=== PATIENT | male | born 1980 | race Caucasian/White ===

== ENCOUNTER 2016-11-25 12:13 | Emergency (ER) | payer OTHER ==
[2016-11-25 12:42] VITALS: BP 128/78; PULSE 75; RESP 18; TEMP 98.1
--- NOTE | 2016-11-25 12:54 | ED ---
Upper Extremity HPI - General Chief Complaint: Extremity Injury, Upper Stated Complaint: Left Arm Injury Time Seen by Provider: 11/25/16 12:43 Source: patient, RN notes reviewed, old records reviewed Mode of arrival: ambulatory Limitations: no limitations - History of Present Illness Initial Comments: Patient is a 36-year-old male chief complaint of left shoulder pain for approximately 3 days. 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 Patient reports that when he closed the door to door slammed on the shoulder was pushed forward. Patient states he feels like he hyperextended his shoulder. He states he does have full range of motion. Denies any numbness or tingling down the hand. Denies any chest pain shortness of breath nausea or vomiting or dizziness. Patient states that the pain is worse with different movements. He has never had any previous injuries to shoulder.Patient denies any recent fever, chills, shortness of breath, chest pain, back pain, abdominal pain, nausea vomiting, numbness or tingling, dysuria or hematuria, constipation or diarrhea, headaches or visual changes, or any other current symptoms - Related Data Previous Rx's Medication Instructions Recorded Ibuprofen [Motrin] 600 mg PO Q6HR PRN #20 tab 10/01/15 traMADol HCL [Ultram] 50 mg PO Q6HR PRN #12 tab 11/25/16 Allergies Allergy/AdvReac Type Severity Reaction Status Date / Time No Known Allergies Allergy Verified 11/25/16 12:40 Review of Systems ROS Statement: Those systems with pertinent positive or pertinent negative responses have been documented in the HPI. ROS Other: All systems not noted in ROS Statement are negative. Past Medical History Past Medical History: No Reported History History of Any Multi-Drug Resistant Organisms: None Reported Additional Past Surgical History / Comment(s): Lipoma removal Past Psychological History: No Psychological Hx Reported Smoking Status: Former smoker Past Alcohol Use History: Occasional Past Drug Use History: None Reported General Exam - General Exam Comments Initial Comments: Pleasant 36-year-old male. Patient does not appear to be in any acute distress. Limitations: no limitations General appearance: alert, in no apparent distress Head exam: Present: atraumatic, normocephalic, normal inspection Eye exam: Present: normal appearance, PERRL, EOMI. Absent: scleral icterus, conjunctival injection, periorbital swelling ENT exam: Present: normal exam Neck exam: Present: normal inspection. Absent: tenderness, meningismus, lymphadenopathy Respiratory exam: Present: normal lung sounds bilaterally. Absent: respiratory distress, wheezes, rales, rhonchi, stridor Cardiovascular Exam: Present: regular rate, normal rhythm, normal heart sounds. Absent: systolic murmur, diastolic murmur, rubs, gallop, clicks GI/Abdominal exam: Present: soft, normal bowel sounds. Absent: distended, tenderness, guarding, rebound, rigid Extremities exam: Present: normal inspection, full ROM, normal capillary refill. Absent: tenderness, pedal edema, joint swelling, calf tenderness Left Shoulder Exam: Present: normal inspection, full ROM, tenderness (Tenderness over the glenohumeral joint.) Upper Arm exam: Present: normal inspection, full ROM Elbow exam: Present: normal inspection, full ROM Forearm Wrist exam: Present: normal inspection, full ROM Hand Wrist exam: Present: normal inspection, full ROM Neuro motor exam: Present: wrist extension intact, thumb opposition intact, thumb IP flexion intact, thumb adduction intact, fingers 2-5 abduction intact Vascular: Present: normal capillary refill Back exam: Present: normal inspection Neurological exam: Present: alert, oriented X3, CN II-XII intact Psychiatric exam: Present: normal affect, normal mood Skin exam: Present: warm, dry, intact, normal color. Absent: rash Course Vital Signs 11/25/16 12:40 Temperature 98.1 F Pulse Rate 75 Respiratory 18 Rate Blood Pressure 128/78 O2 Sat by Pulse 98 Oximetry Medical Decision Making - Medical Decision Making atient is a 36-year-old male chief complaint of left shoulder pain for approximately 3 days. 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 Patient reports that when he closed the door to door slammed on the shoulder was pushed forward. Patient states he feels like he hyperextended his shoulder. He states he does have full range of motion. Denies any numbness or tingling down the hand. Denies any chest pain shortness of breath nausea or vomiting or dizziness. Patient states that the pain is worse with different movements. Patient does have full range of motion of his left shoulder. He does have full strength. X-ray of the left shoulder was obtained. States the pain is worse with certain movements specifically reaching overhead. Discussed that we'll put the patient in a sling and continue to take Tylenol and Motrin for pain. Patient will be discharged with a few tramadol for severe pain. Discussed close follow-up with orthopedic if symptoms continue persist. Patient agrees to treatment plan will comply. Return parameters were discussed. - Radiology Data Radiology results: report reviewed Left shoulder x-rays interpreted for any acute process. No evidence of fracture dislocation. Disposition Clinical Impression: Shoulder sprain Disposition: HOME SELF-CARE Condition: Good Instructions: Shoulder Sprain (ED) Additional Instructions: Rest, continue to apply ice over the shoulder. Take Motrin for pain. Patient can take an Ultram for severe pain at night. Patient should follow-up with orthopedic physician if symptoms continue to persist. Prescriptions: traMADol HCL [Ultram] 50 mg PO Q6HR PRN #12 tab PRN Reason: Pain Referrals: None,Stated [Primary Care Provider] - 1-2 days Natan Vann DO [Doctor of Osteopathic Medicine] - 1-2 days Time of Disposition: 13:02
--- NOTE | 2016-11-25 13:07 | XR ---
EXAMINATION TYPE: XR shoulder complete LT DATE OF EXAM: 11/25/2016 1:00 PM CLINICAL HISTORY: Left shoulder pain since pulling injury 5 days ago. TECHNIQUE: Three views of the left shoulder are obtained. COMPARISON: None. FINDINGS: There is no acute fracture/dislocation evident in the left shoulder. The acromioclavicula r and glenohumeral joint spaces appear within normal limits. The visualized ribs are intact and unre markable. IMPRESSION: There is no acute fracture or dislocation in the left shoulder.
== END 2016-11-25 13:12 | disposition home or self-care (01) ==
LOC: EC 12:13
DX: S43.402A Unspecified sprain of left shoulder joint, initial encounter (principal); Z87.891 Personal history of nicotine dependence; W23.0XXA Caught, crushed, jammed, or pinched between moving objects, initial encounter; Y93.89 Activity, other specified
CPT/HCPCS: 99284

== ENCOUNTER 2017-03-10 20:54 | Emergency (ER) | payer OTHER ==
[2017-03-10 22:43] VITALS: RESP 16
--- NOTE | 2017-03-10 22:49 | ED ---
General Adult HPI - General Chief complaint: Abdominal Pain Stated complaint: abd/rib pain Time Seen by Provider: 03/10/17 22:31 Source: patient Mode of arrival: ambulatory Limitations: no limitations - History of Present Illness Initial comments: Patient is a 37-year-old male with no significant past medical history who presents to the ED for evaluation of right upper quadrant pain that occurs when he bends over intermittently for the past one year. Patient states that for approximately one year he has noticed that at times if he is in a standing position and bends over to tie his shoes he experiences a sharp pain in his right upper quadrant. The patient describes the pain as feeling like a muscle tightness. He reports that if he stands and stretches with his hands over his head the pain resolves. He hasn't identified any other exacerbating or relieving factors to this pain. The pain does not occur every time he bends over. Pain is not associated with any nausea, vomiting, change in bowel or bladder habits, chest pain or shortness of breath. He does state when he has the pain is more painful when he takes deep breaths, however he does however feel short of breath. Patient does report he is a former smoker, quit smoking 13 months ago. Patient states he is concerned that because he was a smoker he is a high risk of having lung cancer and wants to be evaluated. Patient does not have a primary care physician, he states the formally followed with primary care physician in [place] however he moved appear to years ago and hasn 't established care. 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 He does report he still drinks 2-3 times per week drinking usually only about 3 beers at a time though he does admit on occasion he has up to 9 beers. He denies being a daily drinker, he denies any history of withdrawal. - Related Data Home Medications Medication Instructions Recorded Confirmed Amoxicillin 500 mg PO Q8H 03/10/17 03/10/17 Allergies Allergy/AdvReac Type Severity Reaction Status Date / Time No Known Allergies Allergy Verified 03/10/17 21:33 Review of Systems ROS Statement: Those systems with pertinent positive or pertinent negative responses have been documented in the HPI. ROS Other: All systems not noted in ROS Statement are negative. Constitutional: Denies: fever, chills ENT: Denies: throat pain Respiratory: Denies: cough, dyspnea, wheezes, hemoptysis Cardiovascular: Denies: chest pain, palpitations, dyspnea on exertion, orthopnea , edema, syncope Endocrine: Denies: fatigue Gastrointestinal: Reports: abdominal pain. Denies: nausea, vomiting, diarrhea, constipation, hematemesis, melena, hematochezia Genitourinary: Denies: urgency, dysuria, frequency, hematuria Musculoskeletal: Denies: back pain Skin: Denies: rash, lesions, change in color Neurological: Denies: headache, weakness Psychiatric: Denies: anxiety Hematological/Lymphatic: Denies: easy bleeding, easy bruising Past Medical History Past Medical History: No Reported History History of Any Multi-Drug Resistant Organisms: None Reported Past Surgical History: No Surgical Hx Reported Additional Past Surgical History / Comment(s): Lipoma removal Past Psychological History: No Psychological Hx Reported Smoking Status: Former smoker Past Alcohol Use History: Occasional Past Drug Use History: None Reported General Exam Limitations: no limitations General appearance: alert, in no apparent distress Head exam: Present: atraumatic, normocephalic, normal inspection Eye exam: Present: normal appearance, PERRL, EOMI. Absent: scleral icterus, conjunctival injection, periorbital swelling ENT exam: Present: normal exam, mucous membranes moist Neck exam: Present: normal inspection. Absent: tenderness, meningismus, lymphadenopathy Respiratory exam: Present: normal lung sounds bilaterally. Absent: respiratory distress, wheezes, rales, rhonchi, stridor, chest wall tenderness Cardiovascular Exam: Present: regular rate, normal rhythm, normal heart sounds. Absent: systolic murmur, diastolic murmur, rubs, gallop, clicks GI/Abdominal exam: Present: soft, normal bowel sounds. Absent: distended, tenderness, guarding, rebound, rigid, organomegaly, mass, pulsatile mass, hernia Extremities exam: Present: normal inspection, full ROM, normal capillary refill. Absent: tenderness, pedal edema, joint swelling, calf tenderness Back exam: Present: normal inspection, other (Very small well-healed surgical scar in the lumbar region consistent with history of lipoma removal) Neurological exam: Present: alert, oriented X3, CN II-XII intact Psychiatric exam: Present: normal affect, normal mood Skin exam: Present: warm, dry, intact, normal color. Absent: rash Course Vital Signs 03/10/17 03/10/17 03/11/17 21:29 22:39 00:11 Temperature 98.8 F 97.5 F L Pulse Rate 65 68 56 L Respiratory 18 16 16 Rate Blood Pressure 133/76 133/73 127/74 O2 Sat by Pulse 98 99 97 Oximetry Medical Decision Making - Medical Decision Making Patient was seen and evaluated, history was obtained from the patient Triage vital signs were reviewed, unremarkable History is vague with a right upper quadrant discomfort that occurs when bending over intermittently for one year time I advised the patient that he doesn't appear to have an emergency today, and that we likely will not have a definitive diagnosis for his intermittent pain. I advised the patient that he should keep a journal of his pain to document if it is related to any specific activities, eating that he can discuss this with her primary care physician when he follows up. Order acute abdominal series to evaluate Abdominal series no acute findings, results were discussed with patient expresses relief that there is no lung mass identified. I advised the patient that he needs to follow up with primary care physician for further evaluation. Patient expressed understanding and agreement with plan for discharge home and close follow-up with her primary care physician. All questions pertaining to care were answered to the best my ability the patient was discharged home in stable condition Disposition Clinical Impression: Abdominal pain Disposition: HOME SELF-CARE Condition: Good Instructions: Abdominal Pain (ED) Referrals: None,Stated [Primary Care Provider] - 1-2 days
--- NOTE | 2017-03-10 23:18 | XR ---
EXAM: XR Abdomen Complete With XR Chest CLINICAL HISTORY: Reason: Pain. Abdominal pain. TECHNIQUE: Frontal view of the chest, frontal view of the abdomen/pelvis and upright view of the abdomen. COMPARISON: No relevant prior studies available. FINDINGS: Lungs: Lungs are clear without focal infiltrates or consolidations. Pleural space: No evidence of pleural disease or effusion. Heart: Chest: Heart size and mediastinal structures are within normal limits. Mediastinum: Unremarkable. Intraperitoneal space: Bowel gas pattern is unremarkable. No evidence of bowel obstruction or pneumoperitoneum. Gastrointestinal tract: Unremarkable. No dilation. Organs: No radiopaque renal calculi. Bones/joints: Unremarkable. Other findings: No abnormal calcifications in abdomen or pelvis. IMPRESSION: No radiographic evidence of acute abdominal disease or bowel obstruction.
[2017-03-11 00:12] VITALS: BP 127/74; PULSE 56; TEMP 97.5
== END 2017-03-11 00:12 | disposition home or self-care (01) ==
LOC: EC 20:54
DX: R10.11 Right upper quadrant pain (principal); R06.02 Shortness of breath; Z87.891 Personal history of nicotine dependence
CPT/HCPCS: 74022; 99284

== ENCOUNTER 2018-01-05 16:22 | Emergency (ER) | payer OTHER ==
[2018-01-05 17:05] VITALS: BP 111/63; PULSE 69; RESP 16; TEMP 98.1
--- NOTE | 2018-01-05 17:33 | XR ---
EXAMINATION TYPE: XR hand complete LT DATE OF EXAM: 01/05/2018 COMPARISON: NONE HISTORY: Metacarpal pain TECHNIQUE: 3 views FINDINGS: I see no fracture nor dislocation. Metacarpals are intact. Joint spaces are normal. IMPRESSION: Negative left hand exam.
--- NOTE | 2018-01-05 17:46 | ED ---
Upper Extremity HPI - General Chief Complaint: Extremity Injury, Upper Stated Complaint: lt hand/wrist injury Time Seen by Provider: 01/05/18 17:24 Source: patient, RN notes reviewed Mode of arrival: ambulatory Limitations: no limitations - History of Present Illness Initial Comments: 37-year-old male presents emergency department for chief complaint of left hand pain. Patient states he was helping move some carpet today states that he felt some pulling on his hand he has some pain after making a fist. Patient denies any swelling no ecchymosis he is [id number]. He said no prior left hand injuries. Patient has not taken any medications prior arrival. - Related Data Home Medications Medication Instructions Recorded Confirmed Amoxicillin 500 mg PO Q8H 03/10/17 03/10/17 Allergies Allergy/AdvReac Type Severity Reaction Status Date / Time No Known Allergies Allergy Verified 01/05/18 17:05 Review of Systems ROS Statement: Those systems with pertinent positive or pertinent negative responses have been documented in the HPI. ROS Other: All systems not noted in ROS Statement are negative. Past Medical History Past Medical History: No Reported History History of Any Multi-Drug Resistant Organisms: None Reported Past Surgical History: No Surgical Hx Reported Additional Past Surgical History / Comment(s): Lipoma removal Past Psychological History: No Psychological Hx Reported Smoking Status: Former smoker Past Alcohol Use History: Occasional Past Drug Use History: None Reported General Exam Limitations: no limitations General appearance: alert, in no apparent distress Respiratory exam: Present: normal lung sounds bilaterally. Absent: respiratory distress, wheezes, rales, rhonchi, stridor Cardiovascular Exam: Present: regular rate, normal rhythm, normal heart sounds. Absent: systolic murmur, diastolic murmur, rubs, gallop, clicks Extremities exam: Present: other (Left hand there is mild pain with extension and flexion of the fourth and fifth digit though it's very minimal patient has equal strength there is no focal weakness Refill less than 2 seconds of all digits there is no tenderness over the carpal region or the metacarpals.) Course Vital Signs 01/05/18 17:03 Temperature 98.1 F Pulse Rate 69 Respiratory 16 Rate Blood Pressure 111/63 O2 Sat by Pulse 99 Oximetry Medical Decision Making - Medical Decision Making 37-year-old male presented from for left hand injury. I do feel the patient has left hand sprain there is no injuries noted on x-ray no acute fracture. Patient has equal strength there is no concern for complete rupture of tendon at this time. Patient will follow-up with orthopedics if no improvement. Conservative treatment will be started icing, Tylenol, Motrin and close follow- up. Disposition Clinical Impression: Sprain of left hand Disposition: HOME SELF-CARE Condition: Stable Instructions: Hand Sprain (ED) Additional Instructions: Please return to the Emergency Department if symptoms worsen or any other concerns. Is patient prescribed a controlled substance at d/c from ED?: No Referrals: Jama Elam MD [Primary Care Provider] - 1-2 days Time of Disposition: 17:46
== END 2018-01-05 17:56 | disposition home or self-care (01) ==
LOC: EC 16:22
DX: S63.92XA Sprain of unspecified part of left wrist and hand, initial encounter (principal); Z87.891 Personal history of nicotine dependence; X50.0XXA Overexertion from strenuous movement or load, initial encounter
CPT/HCPCS: 99283

== ENCOUNTER 2019-04-13 09:50 | Emergency (ER) | payer BC, OTHER ==
[2019-04-13 09:57] VITALS: TEMP 97.9
[2019-04-13] MEDS ORDERED: KETOROLAC 30 MG/ML 1 ML VIAL IM STA (10:58)
--- NOTE | 2019-04-13 11:04 | ED ---
General Adult HPI - General Chief complaint: Back Pain/Injury Stated complaint: back pain Time Seen by Provider: 04/13/19 10:06 Source: patient, RN notes reviewed Mode of arrival: ambulatory Limitations: no limitations - History of Present Illness Initial comments: 39-year-old male without any significant past medical history presents to the emergency department for back pain. Patient bent down to put his lunch box in his backpack earlier this morning and felt a sudden pain in his back. States it is on the bilateral sides of his lower spine. Patient states it is painful to walk and with movement but denies any difficulty walking. Denies any radiating pain down the legs. Denies any weakness numbness or tingling in the legs. Denies any bladder or bowel changes or saddle anesthesia. No fevers or chills, history of IV drug abuse, or recent bacterial infections.Patient has no other complaints at this time including shortness of breath, chest pain, abdominal pain, nausea or vomiting, headache, or visual changes. - Related Data Home Medications Medication Instructions Recorded Confirmed Glucosam/Martin-Msm1/C/Giovanni/Bosw 2 tab PO DAILY 04/13/19 04/13/19 [Glucosamine-Chondroitin Tablet] Ibuprofen [Motrin] 800 mg PO Q6H PRN 04/13/19 04/13/19 Vitamin B Complex 1 cap PO DAILY 04/13/19 04/13/19 valACYclovir [Valtrex] 500 mg PO DAILY 04/13/19 04/13/19 Previous Rx's Medication Instructions Recorded Lidocaine 5% Patch [Lidoderm 5% 1 patch TOPICAL DAILY PRN 5 Days 04/13/19 Patch] #5 patch Allergies Allergy/AdvReac Type Severity Reaction Status Date / Time No Known Allergies Allergy Verified 04/13/19 10:05 Review of Systems ROS Statement: Those systems with pertinent positive or pertinent negative responses have been documented in the HPI. ROS Other: All systems not noted in ROS Statement are negative. Past Medical History Past Medical History: No Reported History Additional Past Medical History / Comment(s): herpes History of Any Multi-Drug Resistant Organisms: None Reported Past Surgical History: No Surgical Hx Reported Additional Past Surgical History / Comment(s): Lipoma removal Past Psychological History: No Psychological Hx Reported Smoking Status: Former smoker Past Alcohol Use History: Occasional Past Drug Use History: Marijuana General Exam Limitations: no limitations General appearance: alert, in no apparent distress (Resting comfortably, reading a book.) Head exam: Present: atraumatic, normocephalic, normal inspection Eye exam: Present: normal appearance, PERRL, EOMI. Absent: scleral icterus, conjunctival injection, periorbital swelling ENT exam: Present: normal exam, mucous membranes moist Neck exam: Present: normal inspection, full ROM. Absent: tenderness, meningismus, lymphadenopathy Respiratory exam: Present: normal lung sounds bilaterally. Absent: respiratory distress, wheezes, rales, rhonchi, stridor Cardiovascular Exam: Present: regular rate, normal rhythm, normal heart sounds. Absent: systolic murmur, diastolic murmur, rubs, gallop, clicks Extremities exam: Present: full ROM (Patient is able to move lower extremities without difficulty, full range of motion.), normal capillary refill (Capillary refill less than 2 seconds, DP pulse 2+ and equal in lower extremities bilaterally), other (Sensation intact throughout lower extremities bilaterally.). Absent: tenderness, pedal edema, joint swelling, calf tenderness (Tenderness erythema or edema present and lower extremities.) Back exam: Present: paraspinal tenderness (Minimal bilateral lumbar paraspinal tenderness). Absent: full ROM (Patient has 45 of flexion of the lumbar spine, pain with extension.), CVA tenderness (R), CVA tenderness (L), vertebral tenderness (No lumbar vertebral tenderness) Neurological exam: Present: alert, normal gait (Patient ambulatory.) Course Vital Signs 04/13/19 09:54 Temperature 97.9 F Pulse Rate 73 Respiratory 18 Rate Blood Pressure 128/86 O2 Sat by Pulse 100 Oximetry Medical Decision Making - Medical Decision Making 39-year-old male presents to the emergency department for low back pain. Patient bent down today to put a lunch box and his backpack and felt a sudden pain in his back. This is paraspinal pain. There are no red flag symptoms. Vitals are stable. The patient is afebrile. Patient is ambulatory and neurovascular status is intact in lower extremities. Patient presents specifically for MRI. I discussed with the patient that we are not able to do MRI but I will be able to give him an orthopedic referral for possible MRI. He is agreeable to this. Patient will also be given a work note and Toradol for pain. He'll continue Motrin and Tylenol at home. He will be given a Rx for lidocaine patches. Discussed gentle stretching and following up with orthopedics. Discussed returning here if he has any worsening symptoms. Disposition Clinical Impression: Mechanical back pain, Strain of lumbar region Disposition: HOME SELF-CARE Condition: Good Instructions (If sedation given, give patient instructions): Acute Low Back Pain (ED), Lower Back Exercises (ED) Additional Instructions: Please take Motrin and Tylenol for pain. Please use lidocaine patches as needed. This was prescribed to Francie on . do gentle stretching of the low back. Follow-up with orthopedics in one to 2 days. If you have any worsening symptoms such as weakness or numbness in the lower extremities, numbness in the groin or buttock, bladder or bowel changes, or fevers or any other concerning symptoms return to the emergency department. Prescriptions: Lidocaine 5% Patch [Lidoderm 5% Patch] 1 patch TOPICAL DAILY PRN 5 Days #5 patch PRN Reason: Pain Is patient prescribed a controlled substance at d/c from ED?: No Referrals: Jama Elam MD [Primary Care Provider] - 1-2 days Time of Disposition: 11:02
[2019-04-13 11:14] VITALS: BP 124/82; PULSE 70; RESP 16
== END 2019-04-13 11:10 | disposition home or self-care (01) ==
LOC: EC 09:50
DX: S39.012A Strain of muscle, fascia and tendon of lower back, initial encounter (principal); Z87.891 Personal history of nicotine dependence; Z86.19 Personal history of other infectious and parasitic diseases; Z98.890 Other specified postprocedural states; Z79.899 Other long term (current) drug therapy; X50.9XXA Other and unspecified overexertion or strenuous movements or postures, initial encounter; Y93.89 Activity, other specified
CPT/HCPCS: 99283; 96372; J1885

== ENCOUNTER → 2019-04-25 | Outpatient (CLI) | payer BC, OTHER ==
--- NOTE | 2019-04-26 07:01 | CT ---
EXAMINATION TYPE: CT lumbar spine wo con DATE OF EXAM: 04/25/2019 COMPARISON: None HISTORY: Muscle spasms after lifting injury CT DLP: 937 mGycm CONTRAST: None TECHNIQUE: CT of the lumbar spine is performed on a spiral scan at 3 mm thick sections. Reconstructed images are performed in the coronal and sagittal planes. FINDINGS: T12-L1: No focal disc herniation or significant disc bulge is evident. No spinal canal stenosis or neural foraminal stenosis is present. L1-L2: No focal disc herniation or significant disc bulge is evident. No spinal canal stenosis or n eural foraminal stenosis is present L2-L3: No focal disc herniation or significant disc bulge is evident. No spinal canal stenosis or n eural foraminal stenosis is present L3-L4: Broad-based moderate disc bulge has moderate anterior thecal sac flattening. No AP spinal audra l stenosis is present. Neural foramen are patent. L4-L5: Minimal disc bulge is present with anterior thecal sac flattening. No AP spinal canal stenosis or neural foraminal stenosis present. L5-S1: There is narrowing of the disc height. Residual disc bulge has contact with the exiting S1 ner ve roots. No spinal canal stenosis is present. Neural foramen are patent. Vertebral alignment appears normal. Vertebral body heights are preserved. Disc heights are preserved. IMPRESSION: 1. Mild disc bulging L3-4 L4-5 with mild to moderate anterior thecal sac flattening. 2. No abnormal paraspinal soft tissue injury radiographically evident.
== END | disposition home or self-care (01) ==
LOC: RADCTMAIN 16:55
PROVIDERS: ATTEND Family Medicine
DX: M51.26 Other intervertebral disc displacement, lumbar region (principal)
CPT/HCPCS: 72131

== ENCOUNTER → 2020-03-05 | Outpatient (CLI) | payer BC, OTHER ==
--- NOTE | 2020-03-05 15:17 | US ---
EXAMINATION TYPE: US scrotum with doppler. Grayscale and color Doppler Duplex imaging performed of bebo grissom scrotum. DATE OF EXAM: 03/05/2020 COMPARISON: NONE CLINICAL HISTORY: N50.9 Testicle mass. Pt states bilat testicle pain, palpable lump left groin EXAM MEASUREMENTS: TESTICLES: Right Testicle: 5.0 x 2.2 x 3.8 cm Left Testicle: 4.8 x 1.9 x 3.3 cm EPIDIDYMIS HEAD: Right Epididymis: 1.1 cm Left Epididymis: 0.9 cm Doppler performed to assess for testicular vascularity; good bilateral color flow and waveforms are s een. Presence of hydroceles: No Presence of varicoceles: Lateral to right testicle Right testicular calcification= 0.2 cm in size Left epi head cyst= 0.5 x 0.4 cm Within left groin in area of pt's palpable there is a hypoechoic area superficial just under the sk in line= 2.4 x 0.4 x 1.5 cm Mall cysts in the left epididymis. Dermal-based lesion in the left groin in the area of palpable lump . Lesion favored benign. Satisfactory symmetric blood flow to both testicles noted. IMPRESSION: Satisfactory symmetric blood flow to both testicles documented. No suspicious focal intra testicular mass.
== END | disposition home or self-care (01) ==
LOC: RADUSWWP 14:43
PROVIDERS: ATTEND Family Medicine
DX: N50.9 Disorder of male genital organs, unspecified (principal)
CPT/HCPCS: 76870; 93975

== ENCOUNTER → 2021-03-01 | Day surgery (SDC) | payer BC, OTHER ==
[2021-02-26 09:07] VITALS: BMI 27.0
[~2021-03-01] MED LIST: LACTATED RINGERS 1,000 ML IV ONE; PROPOFOL 10 MG/ML 20 ML VIAL IV ONE
[2021-03-01 09:53] VITALS: RESP 16; TEMP 98.5
[2021-03-01 10:15] LABS: Glucose,Whole Blood 102 mg/dL (75-99)
--- NOTE | 2021-03-01 11:31 | P.GSHP ---
History of Present Illness H&P Date: 03/01/21 Chief Complaint: Family history of colon cancer This a 40-year-old male who presents today for colonoscopy. Patient has a strong family history of colon cancer with his mother having colon cancer. Past Medical History Past Medical History: No Reported History Additional Past Medical History / Comment(s): gentital herpes., hemorrhoids, states having perineal pain., occasional hypoglycemia. History of Any Multi-Drug Resistant Organisms: None Reported Past Surgical History: No Surgical Hx Reported Additional Past Surgical History / Comment(s): Lipoma removal L-3, AND lipoma at groin. Past Anesthesia/Blood Transfusion Reactions: No Reported Reaction Past Psychological History: No Psychological Hx Reported Additional Psychological History / Comment(s): states he is going for counseling, thinks he may be bipolar but has not seen yet Smoking Status: Former smoker Past Alcohol Use History: Occasional Additional Past Alcohol Use History / Comment(s): quit smoking 2014 and quit vaping recently, quit cigars 1 month ago. Past Drug Use History: Marijuana Additional Drug Use History / Comment(s): quit marijuana recently - Past Family History Mother Family Medical History: Cancer Additional Family Medical History / Comment(s): colon cancer Father Additional Family Medical History / Comment(s): patients great grandmother and great great grandmother had colon cancer Medications and Allergies Home Medications Medication Instructions Recorded Confirmed Type valACYclovir [Valtrex] 500 mg PO DAILY 04/13/19 03/01/21 History Multivitamin & Supplement Pack 1 dose PO DAILY 02/26/21 03/01/21 History Naproxen Sodium [Aleve] 440 mg PO DIRECTED PRN 02/26/21 03/01/21 History Allergies Allergy/AdvReac Type Severity Reaction Status Date / Time No Known Allergies Allergy Verified 03/01/21 09:55 Surgical - Exam Vital Signs Temp Pulse Resp BP Pulse Ox 98.5 F 77 16 131/76 97 03/01/21 09:52 03/01/21 09:52 03/01/21 09:52 03/01/21 09:52 03/01/21 09:52 - General well developed, well nourished, no distress - Eyes PERRL - ENT normal pinna - Neck no masses - Respiratory normal expansion - Cardiovascular Rhythm: regular - Abdomen Abdomen: soft, non tender Results - Labs Abnormal Lab Results - Last 24 Hours (Table) 03/01/21 Range/Units 10:10 POC Glucose (mg/dL) 102 H (75-99) mg/dL Assessment and Plan Assessment: Family history of colon cancer. We'll perform colonoscopy.
--- NOTE | 2021-03-01 11:46 | P.OP ---
Date of Procedure: 03/01/21 Preoperative Diagnosis: Family history colon cancer Postoperative Diagnosis: No evidence of colorectal polyps in rectum sigmoid colon and left colon. Incomplete colonoscopy, barium enema pending Procedure(s) Performed: Colonoscopy Anesthesia: MAC Surgeon: Alex Ribeiro Pathology: none sent Condition: stable Disposition: PACU Description of Procedure: Patient's placed on the endoscopy table in the lateral position. He received IV sedation. Digital rectal exam was performed which revealed no abnormalities. Possible colonoscope was then placed patient anus and passed throughout colon. The scope couldn't be advanced. The colon. This was due to significant tortuosity. Scope was withdrawn. A pediatric colonoscope was then placed patient anus passed throughout the colon. However once again the colonoscope could not be advanced beyond the left colon. This was withdrawn. There was no evidence of any polyps or tumors. Scope was brought back the rectum this appeared normal. Scope withdrawn for patient.
[2021-03-01 12:00] VITALS: BP 121/73; PULSE 60
--- NOTE | 2021-03-03 23:52 | FL ---
EXAMINATION TYPE: FL barium enema w air contrast DATE OF EXAM: 03/01/2021 CLINICAL HISTORY: 40-year-old male incomplete colonoscopy, family history of colon cancer. TECHNIQUE: A double contrast barium enema study is performed. COMPARISON: None. Total fluoroscopy time: 4 minutes 40 seconds. Total images: 76. FINDINGS: Baggage Checker view of the abdomen shows persistent prominent colonic air. Decision is made to proceed with th e exam after the insistence of the patient. This does cause some prolongation of the exam time. Initially, there are a couple short segments of annular narrowing along the transverse colon. This la ter resolves, compatible with transient spasm. No evidence of any mass or polyp, obstructing or const ricting lesion throughout the colon. No significant diverticular disease is noted. Appendix was filled and appeared normal. No reflux int o the terminal ileum. IMPRESSION: A couple short segments of annular narrowing along the transverse colon later resolved compatible wit h transient spasm. No suspicious colonic lesion seen.
== END ==
LOC: ORWHC2ENDO 09:25
PROVIDERS: ATTEND Surgery
DX: Z12.11 Encounter for screening for malignant neoplasm of colon (principal); Z80.0 Family history of malignant neoplasm of digestive organs; Z87.891 Personal history of nicotine dependence
CPT/HCPCS: 45378; 74280; J2704

== ENCOUNTER → 2024-02-11 | Outpatient (CLI) | payer BC ==
--- NOTE | 2024-02-15 09:27 | CT ---
EXAMINATION TYPE: CT soft tissue neck w con DATE OF EXAM: 02/11/2024 COMPARISON: None HISTORY: Pain and dysphagia x6 months. CT DLP: 755 mGycm CONTRAST: Patient injected with 100ml mL of Isovue 300. TECHNIQUE: Axial images at 3 mm thick sections. Reconstructed images in the coronal plane and sagitt al plane are reviewed. FINDINGS: Limited CT sections are obtained the lung apices. The lung apices appear clear. CT neck: The torus tubarius and fossa of Rosenmuller are normal. Rn Allergy spaces are normal. Para nasal sinuses and mastoid air cells are clear. Parotid glands appear normal and symmetrical. Submandibular glands, are normal. Parapharyngeal spac es are normal. No suspicious adenopathy is evident. The hypopharynx is not well visualized during this exam. Consider direct visualization. No obvious un derlying mass identified. Vocal cord level appear symmetrical. Thyroid as visualized is normal. Osseous structures are normal. IMPRESSION: 1. No suspicious abnormality to account for pain and dysphasia. 2. Limitation of the hypopharynx which appears collapsed during the exam. Consider direct visualizati on
--- NOTE | 2024-02-15 10:53 | FL ---
EXAMINATION TYPE: FL barium swallow DATE OF EXAM: 02/11/2024 COMPARISON: None HISTORY: Dysphasia TECHNIQUE: A double air contrast UGI study is performed. FINDINGS: Fluoroscopy time: 40 seconds. DAP: 862.13 Images: 96 Esophagus dilates to normal caliber and has normal contour the gastroesophageal junction. Gastroesoph ageal junction opens to normal caliber. No intraluminal or extramural defects are evident. No reflux could be elicited. Small secondary contraction was observed with incomplete stripping in the horizon dalia drinking position.. IMPRESSION: 1. Mild presbyesophagus with mild incomplete stripping of the esophageal bolus in the horizontal drin janene position.
== END | disposition home or self-care (01) ==
LOC: RADCTMAIN 06:59
PROVIDERS: ATTEND Otolaryngology
DX: R13.19 Other dysphagia (principal); J31.2 Chronic pharyngitis; K22.89 Other specified disease of esophagus
CPT/HCPCS: 74220; 70491; Q9967

== ENCOUNTER 2024-03-22 09:10 | Day surgery (SDC) | payer BC, OTHER ==
[~2024-03-22 09:10] MED LIST changes: -LACTATED RINGERS 1,000 ML IV ONE; +LIDOCAINE 1% (10MG/ML) FOR IV START INTRADERMA PRN; -PROPOFOL 10 MG/ML 20 ML VIAL IV ONE
[2024-03-22 09:31] VITALS: TEMP 98.2
[2024-03-22] MEDS: IV FLUID CONTINUATION 1,000 ML IV ONE (09:38)
[2024-03-22] MEDS: LACTATED RINGERS 1,000 ML IV SCH (09:43)
[2024-03-22] MEDS ORDERED: LIDOCAINE 1% INJ 10MG/ML (20 ML MDV) ONE (10:22)
[2024-03-22] MEDS ORDERED: PROPOFOL 10 MG/ML 20 ML VIAL IV ONE (10:22)
--- NOTE | 2024-03-22 10:29 | P.GSHP ---
History of Present Illness H&P Date: 03/22/24 Chief Complaint: Dysphagia 44-year-old male here for upper endoscopy. Patient was having complaints of dysphagia. [place] that multivitamins were being stuck when swallowing. Those symptoms have improved. He did start antiacids. Past Medical History Past Medical History: No Reported History Additional Past Medical History / Comment(s): gentital herpes., hemorrhoids, states having perineal pain., occasional hypoglycemia. History of Any Multi-Drug Resistant Organisms: None Reported Past Surgical History: No Surgical Hx Reported Additional Past Surgical History / Comment(s): Lipoma removal L-3, AND lipoma at groin. Past Anesthesia/Blood Transfusion Reactions: No Reported Reaction Past Psychological History: No Psychological Hx Reported Additional Psychological History / Comment(s): states he is going for counseling, thinks he may be bipolar but has not seen yet Smoking Status: Former smoker Past Alcohol Use History: Occasional Additional Past Alcohol Use History / Comment(s): quit smoking 2014 and quit vaping recently, quit cigars 1 month ago. Past Drug Use History: Marijuana Additional Drug Use History / Comment(s): quit marijuana recently - Past Family History Mother Family Medical History: Cancer Additional Family Medical History / Comment(s): colon cancer Father Additional Family Medical History / Comment(s): patients great grandmother and great great grandmother had colon cancer Medications and Allergies Home Medications Medication Instructions Recorded Confirmed Type valACYclovir HCL [Valtrex] 500 mg PO DAILY 04/13/19 03/01/21 History Multivitamin & Supplement Pack 1 dose PO DAILY 02/26/21 03/01/21 History Naproxen Sodium [Aleve] 440 mg PO DIRECTED PRN 02/26/21 03/01/21 History Ashwagandha Root Extract 03/21/24 History [Ashwagandha] Lansoprazole [Prevacid] 03/21/24 History Shilajit 03/21/24 History Allergies Allergy/AdvReac Type Severity Reaction Status Date / Time No Known Allergies Allergy Verified 03/01/21 09:55 Surgical - Exam Vital Signs Temp Pulse Resp BP Pulse Ox 98.2 F 63 18 117/66 97 03/22/24 09:29 03/22/24 09:29 03/22/24 09:29 03/22/24 09:29 03/22/24 09:29 Physical exam: General: Well-developed, well-nourished HEENT: Normocephalic, sclerae nonicteric Abdomen: Nontender, nondistended Extremities: No edema Neuro: Alert and oriented Assessment and Plan (1) Dysphagia Narrative/Plan: Will proceed with upper endoscopy at this time Current Visit: Yes Status: Acute Code(s): R13.10 - DYSPHAGIA, UNSPECIFIED SNOMED Code(s): 63180690
--- NOTE | 2024-03-22 10:35 | P.PCN ---
Date of Procedure: 03/22/24 Procedure(s) Performed: Preoperative Dx: Dysphagia Postoperative Dx: Mild gastritis Procedure: EGD with Bx Anesthesia: Sedation Endoscopist: Dr. Pina Specimens: Antrum Endoscopic Procedure: The patient was on the endoscopy table in the left decubitus position. The Olympus gastroscope was inserted into the oropharynx and passed under direct visualization to the region of the third portion of the duodenum. From that point the scope was slowly withdrawn inspecting all surfaces carefully. There were no neoplastic inflammatory or polypoid lesions throughout the duodenum. The pylorus was widely patent. The stomach was carefully inspected. There was mild gastritis present. A biopsy of the antrum took place to rule out H. pylori. Retroflexion revealed a normal hiatus. The esophagus was then carefully examined. There were no neoplastic inflammatory or polypoid lesions throughout the visualized esophagus. The patient was then taken to the recovery room in stable condition per anesthesia guidelines. Recommendations: Resume diet. Continue as needed antiacid use
[2024-03-22 10:44] VITALS: RESP 16
[2024-03-22 10:56] VITALS: BP 118/77; PULSE 65
== END 2024-03-22 11:17 | disposition home or self-care (01) ==
LOC: ORWHC2ENDO 09:10
PROVIDERS: ATTEND Surgery
DX: K29.50 Unspecified chronic gastritis without bleeding (principal); F31.9 Bipolar disorder, unspecified; K21.9 Gastro-esophageal reflux disease without esophagitis; Z87.19 Personal history of other diseases of the digestive system; Z79.899 Other long term (current) drug therapy; Z87.891 Personal history of nicotine dependence; Z80.0 Family history of malignant neoplasm of digestive organs; Z79.624 Long term (current) use of inhibitors of nucleotide synthesis
CPT/HCPCS: 43239; 88305